=== PATIENT | male | born 1975 | race Two or more races ===

== ENCOUNTER 2017-02-02 08:53 | Emergency (ER) | payer SELFPAY ==
[~2017-02-02] VITALS: Ht 175.3 cm; Wt 96.4 kg
[2017-02-02] MEDS ORDERED: ACYCLOVIR 800 MG TABLET PO STA (09:12)
[2017-02-02 09:34] VITALS: BP 133/88
== END 2017-02-02 09:47 | disposition home or self-care (01) ==
LOC: ED 09:45
DX: G51.0 Bell's palsy (principal)
CPT/HCPCS: 93005; 99283; J7512

== ENCOUNTER 2020-09-01 20:51 | Emergency (ER) | payer SELFPAY ==
[~2020-09-01] VITALS: Ht 175.3 cm; Wt 102.0 kg
--- NOTE | 2020-09-01 21:17 | NUR ---
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
[2020-09-01 22:21] LABS: BASOPHILS % (AUTO) 1 % (0-1); EOSINOPHILS % (AUTO) 2 % (1-7); LYMPHOCYTES % (AUTO) 35 % (22-44); MEAN CORPUSCULAR HEMOGLOBIN 31.1 pg (27.5-34.5); MEAN CORPUSCULAR HGB CONC 34.8 g/dL (33.2-36.2); MEAN PLATELET VOLUME 9.2 fL (7.4-10.4); MONOCYTES % (AUTO) 10 % (2-9); NEUTROPHILS % (AUTO) 53 % (42-75); PLATELET COUNT 219 x10^3/uL (130-400); RED BLOOD COUNT 5.22 x10^6/uL (4.38-5.82); RED CELL DISTRIBUTION WIDTH 13.4 % (9.4-14.8)
[2020-09-01 22:33] LABS: MD NO
[2020-09-01 22:34] LABS: ALBUMIN 3.8 g/dL (3.4-5.0); ANION GAP 6 mmol/L (5-15); CALCIUM 8.6 mg/dL (8.5-10.1); CHLORIDE 108 mmol/L (98-107)
[2020-09-01 22:45] LABS: ALANINE AMINOTRANSFERASE 54 U/L (12-78); ALKALINE PHOSPHATASE 101 U/L (45-117); BILIRUBIN,TOTAL 0.5 mg/dL (0.2-1.0); CREATININE 0.87 mg/dL (0.7-1.3); T4 (THYROXINE) 6.1 mcg/dL (4.5-12.1); TOTAL PROTEIN 7.9 g/dL (6.4-8.2); TROPONIN I < 0.015 ng/mL (0.000-0.045)
[2020-09-01 23:14] VITALS: BP 135/71
== END 2020-09-01 23:29 | disposition home or self-care (01) ==
LOC: ED 23:20
DX: R00.2 Palpitations (principal); I10 Essential (primary) hypertension; R07.89 Other chest pain
CPT/HCPCS: 36415; 71045; 80053; 83735; 84436; 84443; 84484; 85025; 93005; 99285